=== PATIENT | female | born 1980 | race Caucasian/White ===

== ENCOUNTER 2022-06-29 13:43 | Emergency (ER) | payer MEDICARE, SELFPAY ==
--- NOTE | 2022-06-29 13:45 | ED.FEMALEGU ---
HPI - Female Genitourinary General Chief complaint: Urogenital-Female Stated complaint: Urinary Problem Time Seen by Provider: 06/29/22 13:45 Source: patient and RN notes reviewed History of Present Illness HPI Narrative: patient is a 41-year-old female who presents to the Urgent Care with complaints of possible UTI. Patient states that 6 days ago her symptoms started with frequency, burning, urgency, odor and decreased urinary output. Patient states she spoke to her doctor on Day was placed on Macrobid. Patient states symptoms seem to have gotten worse. Reports of some nausea without abdominal pain or fevers. No other acute complaints. No acute distress noted. Patient aware of the plan of care. Some parts of this dictation were generated by voice recognition software and may contain typographical and/or grammatical inaccuracies. Related Data Home Medications Medication Instructions Recorded Confirmed albuterol sulfate 90 mcg/actuation inhalation 06/29/22 aerosol inhaler (Ventolin HFA) alprazolam 1 mg tablet mg 06/29/22 atogepant 30 mg tablet (Qulipta) mg 06/29/22 celecoxib 200 mg capsule mg 06/29/22 clotrimazole 10 mg doug mg 06/29/22 docusate sodium 100 mg capsule mg PO 06/29/22 escitalopram oxalate 10 mg tablet mg 06/29/22 fluconazole 150 mg tablet mg 06/29/22 gabapentin 300 mg capsule mg 06/29/22 lactulose 10 gram/15 mL oral 06/29/22 solution lamotrigine 100 mg tablet mg 06/29/22 lamotrigine 25 mg tablet mg 06/29/22 levonorgestrel 0.15 mg-ethinyl 06/29/22 estradiol 30 mcg tablets,3 mos pack(91) (Setlakin) meclizine 25 mg chewable tablet mg 06/29/22 nitrofurantoin 06/29/22 monohydrate/macrocrystals 100 mg capsule omeprazole 40 mg capsule,delayed mg 06/29/22 release oxybutynin chloride 5 mg mg PO 06/29/22 tablet,extended release 24 hr ubrogepant 100 mg tablet (Ubrelvy) mg 06/29/22 Allergies Allergy/AdvReac Type Severity Reaction Status Date / Time levetiracetam [From [facility]] Allergy Itching Verified 06/29/22 14:12 Sulfa (Sulfonamide Allergy Itching Verified 06/29/22 14:11 Antibiotics) Review of Systems Review of Systems: CONSTITUTIONAL: Denies fever, chills, or sweats. EYES: Denies visual changes, redness, or discharge. ENT: Denies rhinorrhea, congestion, sore throat, or otalgia. CARDIOVASCULAR: Denies chest pain, palpitations, or edema. RESPIRATORY: Denies cough or dyspnea. GASTROINTESTINAL: reports of nausea without abdominal pain GENITOURINARY: Reports of urinary urgency, frequency, dysuria, odor SKIN: Denies rash or itching. MUSCULOSKELETAL: Denies back pain, joint pain, or myalgia. NEUROLOGIC: Denies headache, numbness, or weakness. All other systems reviewed are negative, except as documented in HPI. PMFSH Comments At the time of my signature, I reviewed and agree with the nursing past medical, surgical, social, and family history. There is no relevant family history pertinent to the patient complaint. Exam Narrative: GENERAL: This is a well-nourished, well-developed patient, in no apparent distress. HEAD: normocephalic, atraumatic. EYES: PERRL. Sclera clear/white. Vision is grossly intact. EARS: External ears normal NOSE: External nose normal with no obvious nasal discharge, nares without redness, no rhinorrhea. THROAT: Mucous membranes moist NECK: Neck supple, RESPIRATORY: Clear to auscultation. Breath sounds equal bilaterally. No wheezes, rales, or rhonchi. GASTROINTESTINAL: Abdomen soft, mild suprapubic tenderness, nondistended. Bowel sounds are active. SKIN: warm, intact with no suspicious lesions or rash, good texture and turgor. NEURO: awake, alert, and oriented to person, place and time. There were no obvious focal neurologic abnormalities. EXTREMITIES: No clubbing, cyanosis, or edema. BACK: negative bilateral CVA tenderness Course Course Level of Care: Express Care Visit Vital Signs Vital signs: Vital Signs
[2022-06-29 14:00] VITALS: BP 122/71; PULSE 97; RESP 16; TEMP 36.4; O2SAT 95
[2022-06-29 14:15] VITALS: BP 122/71; PULSE 97; RESP 16; TEMP 36.4; O2SAT 95
[2022-06-29 14:24] LABS: Glucose Point of Care 105 mg/dl (65-105)
== END 2022-06-29 14:40 | disposition home or self-care (01) ==
PROVIDERS: Emergency Provider Nurse Practitioner Family
DX: N39.0 Urinary tract infection, site not specified (principal); G35 Multiple sclerosis; G40.909 Epilepsy, unspecified, not intractable, without status epilepticus; J45.909 Unspecified asthma, uncomplicated; F41.9 Anxiety disorder, unspecified; F32.A Depression, unspecified; Z94.84 Stem cells transplant status
CPT/HCPCS: 81003; 82948; 87077; 87086; 87186; 99213; G0463